=== PATIENT | male | born 1940 | race Caucasian/White ===

== ENCOUNTER 2018-04-20 08:30 | Emergency (ER) | payer OTHER ==
[~2018-04-20] VITALS: Ht 180.3 cm; Wt 81.8 kg
[~2018-04-20 08:30] MED LIST: AMIODARONE200 MG PO; ASPIRIN EC325 MG PO; CARVEDILOL12.5 MG PO; DOCUSATE SOD100 MG PO; FUROSEMIDE20 MG PO; SIMVASTATIN10 MG PO; WARFARIN5 MG PO
[2018-04-20 09:10] LABS: HEMATOCRIT 39.1 % (39.0-50.0); HEMOGLOBIN 12.7 g/dl (14.0-18.0); IMMATURE GRANULOCYTES 0.2 % (0.0-5.0); MEAN CELL VOLUME 97.5 fL CALC (80.0-100.0); MEAN CORPUSCULAR HGB 31.7 pG CALC (26.0-32.0); MEAN CORPUSCULAR HGB CONC 32.5 g/L CALC (32.0-36.0); NEUT# 3.27 thou/uL (1.82-7.42); RED BLOOD COUNT 4.01 mill/uL (4.70-6.10); RED CELL DISTRI WIDTH 14.6 % (11.5-15.5)
[2018-04-20 09:23] LABS: CREATININE 1.4 mg/dL (0.7-1.3); POTASSIUM 4.2 mmol/l (3.5-5.1)
[2018-04-20 12:02] VITALS: BP 131/70
== END 2018-04-20 12:02 | disposition home or self-care (01) | DRG 561 ==
LOC: ED 08:30
PROVIDERS: Family Medicine
PROC: 0SW9XJZ Revision of Synthetic Substitute in Right Hip Joint, External Approach (ICD-10-PCS; principal; 2018-04-20)
DX: T84.020A Dislocation of internal right hip prosthesis, initial encounter (principal); Y83.1 Surgical operation with implant of artificial internal device as the cause of abnormal reaction of the patient, or of later complication, without mention of misadventure at the time of the procedure; Z96.641 Presence of right artificial hip joint

== ENCOUNTER 2020-03-19 15:51 | Emergency (ER) | payer OTHER ==
[~2020-03-19] VITALS: Ht 180.3 cm; Wt 75.0 kg
[2020-03-19 16:33] LABS: HEMATOCRIT 43.6 % (39.0-50.0); HEMOGLOBIN 13.6 g/dl (14.0-18.0); IMMATURE GRANULOCYTES 0.5 % (0.0-5.0); MEAN CELL VOLUME 96.7 fL CALC (80.0-100.0); MEAN CORPUSCULAR HGB 30.2 pG CALC (26.0-32.0); MEAN CORPUSCULAR HGB CONC 31.2 g/dL CAL (32.0-36.0); NEUT# 5.01 thou/uL (1.82-7.42); RED BLOOD COUNT 4.51 mill/uL (4.70-6.10); RED CELL DISTRI WIDTH 15.8 % (11.5-15.5)
[2020-03-19 16:52] LABS: CREATININE 1.4 mg/dL (0.7-1.3); POTASSIUM 4.2 mmol/l (3.5-5.1)
[2020-03-19 18:52] VITALS: BP 149/71
== END 2020-03-19 19:06 | disposition home or self-care (01) | DRG 561 ==
LOC: ED 15:51
PROVIDERS: Family Medicine
PROC: 0SW9XJZ Revision of Synthetic Substitute in Right Hip Joint, External Approach (ICD-10-PCS; principal; 2020-03-19)
DX: T84.020A Dislocation of internal right hip prosthesis, initial encounter (principal); W18.2XXA Fall in (into) shower or empty bathtub, initial encounter; Z96.641 Presence of right artificial hip joint

== ENCOUNTER 2020-06-21 10:41 | Emergency (ER) | payer OTHER ==
[~2020-06-21] VITALS: Ht 180.3 cm; Wt 75.0 kg
[2020-06-21] MEDS ORDERED: LIPITOR80 M1 PO (11:06)
[2020-06-21] MEDS ORDERED: CHILD ASA LS81 MG PO (11:07)
[2020-06-21] MEDS ORDERED: SPIRIVA RE1.25 MCG/A IN (11:07)
[2020-06-21] MEDS ORDERED: TYLENOL500 MG PO (11:08)
[2020-06-21] MEDS ORDERED: STOOL SOFTNR PO (11:09)
[2020-06-21 13:30] VITALS: BP 138/80
== END 2020-06-21 13:30 | disposition home or self-care (01) | DRG 561 ==
LOC: ED 10:41
PROC: 0SW9XJZ Revision of Synthetic Substitute in Right Hip Joint, External Approach (ICD-10-PCS; principal; 2020-06-21)
DX: T84.020A Dislocation of internal right hip prosthesis, initial encounter (principal); I10 Essential (primary) hypertension; I25.2 Old myocardial infarction; F17.200 Nicotine dependence, unspecified, uncomplicated; Y83.1 Surgical operation with implant of artificial internal device as the cause of abnormal reaction of the patient, or of later complication, without mention of misadventure at the time of the procedure; Y92.007 Garden or yard of unspecified non-institutional (private) residence as the place of occurrence of the external cause; Z95.1 Presence of aortocoronary bypass graft; Z96.641 Presence of right artificial hip joint

== ENCOUNTER 2021-02-17 08:29 | Emergency (ER) | payer OTHER ==
[~2021-02-17] VITALS: Ht 180.3 cm; Wt 68.0 kg
[~2021-02-17 08:29] MED LIST changes: +CHILD ASA LS81 MG PO; +LIPITOR80 M1 PO; +SPIRIVA RE1.25 MCG/A IN; +STOOL SOFTNR PO; +TYLENOL500 MG PO
[2021-02-17 14:20] VITALS: BP 156/72
== END 2021-02-17 14:26 | disposition home or self-care (01) | DRG 561 ==
LOC: ED 08:29
PROC: 0SW9XJZ Revision of Synthetic Substitute in Right Hip Joint, External Approach (ICD-10-PCS; principal; 2021-02-17)
DX: T84.020A Dislocation of internal right hip prosthesis, initial encounter (principal); I10 Essential (primary) hypertension; E78.00 Pure hypercholesterolemia, unspecified; I25.2 Old myocardial infarction; F17.210 Nicotine dependence, cigarettes, uncomplicated; Y83.1 Surgical operation with implant of artificial internal device as the cause of abnormal reaction of the patient, or of later complication, without mention of misadventure at the time of the procedure; Y92.007 Garden or yard of unspecified non-institutional (private) residence as the place of occurrence of the external cause; Z95.1 Presence of aortocoronary bypass graft; Z20.822 Contact with and (suspected) exposure to COVID-19
CPT/HCPCS: J2060

== ENCOUNTER 2021-07-04 12:53 | Observation (INO) | payer OTHER ==
[~2021-07-04] VITALS: Ht 182.9 cm; Wt 68.6 kg
[2021-07-04 13:33] LABS: IMMATURE GRANULOCYTES 0.3 % (0.0-5.0); MEAN CELL VOLUME 97.3 fL CALC (80.0-100.0); MEAN CORPUSCULAR HGB 30.5 pG CALC (26.0-32.0); MEAN CORPUSCULAR HGB CONC 31.3 g/dL CAL (32.0-36.0); NEUT# 7.34 thou/uL (1.82-7.42); RED BLOOD COUNT 3.71 mill/uL (4.70-6.10); RED CELL DISTRI WIDTH 14.4 % (11.5-15.5)
[2021-07-04 13:45] LABS: ALBUMIN 3.5 g/dL (3.2-5.0); ALKALINE PHOSPHATASE 63 u/l (38-126); AMYLASE 69 u/l (30-110); ANION GAP 9 (6-22 (CALC)); BUN 25 mg/dL (8-23); BUN/CREATININE RATIO 20 (12-20 (CALC)); CARBON DIOXIDE 28 mmol/l (22-30); CHLORIDE 103 mmol/l (95-108); CREATININE 1.2 mg/dL (0.7-1.3); ETHYL ALCOHOL 0 mg/dl (0-30); GFR 58 ML/MIN (>=60 (CALC)); GFR FOR AFR.AMER. > 60 ML/MIN (>=60 (CALC)); LIPASE 77 u/l (23-300); MAGNESIUM 2.1 mg/dL (1.6-2.3); SODIUM 137 mmol/l (137-146); TOTAL PROTEIN 8.1 g/dL (6.3-8.2)
[2021-07-04 13:50] LABS: BILIRUBIN, TOTAL 0.7 mg/dL (0.0-1.4); SGOT/AST 70 u/l (19-48)
[2021-07-04 13:51] LABS: D-DIMER 2.41 mg/L (0.19-0.60)
[2021-07-04 13:54] LABS: HEMATOCRIT 36.1 % (39.0-50.0); HEMOGLOBIN 11.3 g/dl (14.0-18.0)
[2021-07-04 13:59] LABS: ACT PARTIAL THROMBO TIME 30.2 SECONDS (20.0-32.5); INTERNATIONAL NORMALIZED RATIO 1.1 RATIO (0.7-1.3)
[2021-07-04 14:33] LABS: URINE BILIRUBIN - DIPSTICK NEGATIVE (NEGATIVE); URINE BLOOD DIPSTICK MODERATE (NEGATIVE); URINE COLOR YELLOW; URINE GLUCOSE - DIPSTICK NEGATIVE (NEGATIVE); URINE KETONE NEGATIVE (NEGATIVE); URINE LEUK ESTERASE NEGATIVE (NEGATIVE); URINE PROTEIN - DIPSTICK 100 mg/dL (NEG-TRACE); URINE SPECIFIC GRAVITY >=1.030
[2021-07-04 14:44] LABS: URINE NITRITE - DIPSTICK NEGATIVE (Negative)
[2021-07-04 14:45] LABS: URINE WBC 0-2 WBC/hpf (0-5)
[2021-07-04 16:33] VITALS: BP 126/68
[2021-07-04 19:15] VITALS: BP 100/56
[2021-07-05 00:30] VITALS: BP 108/56
[2021-07-05 04:00] VITALS: BP 128/72
[2021-07-05 04:57] LABS: HEMATOCRIT 30.9 % (39.0-50.0); HEMOGLOBIN 10.1 g/dl (14.0-18.0); MEAN CELL VOLUME 94.5 fL CALC (80.0-100.0); MEAN CORPUSCULAR HGB 30.9 pG CALC (26.0-32.0); MEAN CORPUSCULAR HGB CONC 32.7 g/dL CAL (32.0-36.0); RED BLOOD COUNT 3.27 mill/uL (4.70-6.10); RED CELL DISTRI WIDTH 14.2 % (11.5-15.5)
[2021-07-05 05:13] LABS: ANION GAP 16 (6-22 (CALC)); BUN 22 mg/dL (8-23); BUN/CREATININE RATIO 20 (12-20 (CALC)); CARBON DIOXIDE 29 mmol/l (22-30); CHLORIDE 96 mmol/l (95-108); CREATININE 1.1 mg/dL (0.7-1.3); GFR > 60 ML/MIN (>=60 (CALC)); GFR FOR AFR.AMER. > 60 ML/MIN (>=60 (CALC)); POTASSIUM 4.5 mmol/l (3.5-5.1); SODIUM 137 mmol/l (137-146)
[2021-07-05 07:02] VITALS: BP 141/77
[2021-07-05 10:20] VITALS: BP 118/76
[2021-07-05 11:17] VITALS: BP 118/76
[2021-07-05] MEDS ORDERED: ZITHROMAX250 MG PO (11:18)
[2021-07-05] MEDS ORDERED: OMNICEF300 MG PO (11:18)
== END 2021-07-05 12:15 | disposition home or self-care (01) | DRG 195 ==
LOC: ED 12:53 → ED-I 15:03 → ED 15:21 → MS2 15:22
PROVIDERS: ADMIT Hospitalist; ATTEND Hospitalist
DX: J18.9 Pneumonia, unspecified organism (principal); E86.0 Dehydration; I10 Essential (primary) hypertension; I25.10 Atherosclerotic heart disease of native coronary artery without angina pectoris; E78.5 Hyperlipidemia, unspecified; I25.2 Old myocardial infarction; F17.210 Nicotine dependence, cigarettes, uncomplicated; Z95.1 Presence of aortocoronary bypass graft; Z20.822 Contact with and (suspected) exposure to COVID-19
CPT/HCPCS: J1650; Q9967

== ENCOUNTER 2021-07-06 06:43 | Emergency (ER) | payer OTHER ==
[~2021-07-06] VITALS: Ht 182.9 cm; Wt 68.0 kg
[~2021-07-06 06:43] MED LIST changes: +OMNICEF300 MG PO; +ZITHROMAX250 MG PO
[2021-07-06 07:41] LABS: HEMATOCRIT 31.7 % (39.0-50.0); HEMOGLOBIN 10.3 g/dl (14.0-18.0); IMMATURE GRANULOCYTES 0.3 % (0.0-5.0); MEAN CELL VOLUME 94.3 fL CALC (80.0-100.0); MEAN CORPUSCULAR HGB 30.7 pG CALC (26.0-32.0); MEAN CORPUSCULAR HGB CONC 32.5 g/dL CAL (32.0-36.0); NEUT# 4.77 thou/uL (1.82-7.42); RED BLOOD COUNT 3.36 mill/uL (4.70-6.10); RED CELL DISTRI WIDTH 14.3 % (11.5-15.5)
[2021-07-06 08:06] LABS: ALBUMIN 3.2 g/dL (3.2-5.0); ALKALINE PHOSPHATASE 59 u/l (38-126); ANION GAP 9 (6-22 (CALC)); BILIRUBIN, TOTAL 0.5 mg/dL (0.0-1.4); BUN 23 mg/dL (8-23); BUN/CREATININE RATIO 18 (12-20 (CALC)); CARBON DIOXIDE 28 mmol/l (22-30); CHLORIDE 101 mmol/l (95-108); CREATININE 1.3 mg/dL (0.7-1.3); GFR 53 ML/MIN (>=60 (CALC)); GFR FOR AFR.AMER. > 60 ML/MIN (>=60 (CALC)); POTASSIUM 4.1 mmol/l (3.5-5.1); SGOT/AST 73 u/l (19-48); SODIUM 134 mmol/l (137-146); TOTAL PROTEIN 7.4 g/dL (6.3-8.2)
[2021-07-06 08:46] VITALS: BP 145/70
== END 2021-07-06 09:20 | disposition home or self-care (01) | DRG 312 ==
LOC: ED 06:43
PROVIDERS: Family Medicine
DX: R55 Syncope and collapse (principal); J18.9 Pneumonia, unspecified organism; I10 Essential (primary) hypertension; I25.2 Old myocardial infarction; I25.10 Atherosclerotic heart disease of native coronary artery without angina pectoris; F17.210 Nicotine dependence, cigarettes, uncomplicated; Z95.1 Presence of aortocoronary bypass graft

== ENCOUNTER 2022-04-22 11:49 | Emergency (ER) | payer OTHER ==
[~2022-04-22] VITALS: Ht 182.9 cm; Wt 66.0 kg
[2022-04-22] VITALS (33 sets, daily range): BP systolic 88–155; BP diastolic 50–121
[2022-04-22 12:42] LABS: HEMATOCRIT 30.9 % (39.0-50.0); IMMATURE GRANULOCYTES 0.2 % (0.0-5.0); MEAN CELL VOLUME 89.6 fL CALC (80.0-100.0); MEAN CORPUSCULAR HGB CONC 32.4 g/dL CAL (32.0-36.0); NEUT# 4.11 thou/uL (1.82-7.42); RED BLOOD COUNT 3.45 mill/uL (4.70-6.10); RED CELL DISTRI WIDTH 19.2 % (11.5-15.5)
[2022-04-22 13:09] LABS: ALBUMIN 3.8 g/dL (3.2-5.0); ALKALINE PHOSPHATASE 68 u/l (38-126); ANION GAP 14 (6-22 (CALC)); BILIRUBIN, TOTAL 0.6 mg/dL (0.0-1.4); BUN 20 mg/dL (8-23); BUN/CREATININE RATIO 19 (12-20 (CALC)); CARBON DIOXIDE 23 mmol/l (22-30); CHLORIDE 101 mmol/l (95-108); GFR FOR AFR.AMER. > 60 ML/MIN (>=60 (CALC)); GFR OTHER RACES > 60 ML/MIN (>=60 (CALC)); POTASSIUM 4.1 mmol/l (3.5-5.1); SGOT/AST 28 u/l (19-48); SODIUM 133 mmol/l (137-146); TOTAL PROTEIN 8.6 g/dL (6.3-8.2)
[2022-04-22] MEDS ORDERED: RIFAMPIN300 MG PO (13:11)
[2022-04-22] MEDS ORDERED: MYAMBUTOL400 MG PO (13:12)
[2022-04-22] MEDS ORDERED: NAPROXEN500 MG PO (16:53)
== END 2022-04-22 17:59 | disposition home or self-care (01) | DRG 561 ==
LOC: ED 11:49
PROVIDERS: Emergency Medicine
PROC: 0SW9XJZ Revision of Synthetic Substitute in Right Hip Joint, External Approach (ICD-10-PCS; principal; 2022-04-22)
DX: T84.020A Dislocation of internal right hip prosthesis, initial encounter (principal); Y83.1 Surgical operation with implant of artificial internal device as the cause of abnormal reaction of the patient, or of later complication, without mention of misadventure at the time of the procedure; I10 Essential (primary) hypertension; I25.10 Atherosclerotic heart disease of native coronary artery without angina pectoris; I25.2 Old myocardial infarction; F17.210 Nicotine dependence, cigarettes, uncomplicated

== ENCOUNTER 2022-08-10 08:26 | Emergency (ER) | payer OTHER ==
[~2022-08-10] VITALS: Ht 182.9 cm; Wt 67.0 kg
[~2022-08-10 08:26] MED LIST changes: +MYAMBUTOL400 MG PO; +NAPROXEN500 MG PO; +RIFAMPIN300 MG PO
[2022-08-10 09:01] VITALS: BP 165/90
[2022-08-10 09:16] VITALS: BP 162/85
[2022-08-10 09:30] VITALS: BP 166/83
[2022-08-10 09:58] LABS: BASO% 1.4 % (0-3); EOS% 3.9 % (0-8); HEMATOCRIT 32.7 % (39.0-50.0); HEMOGLOBIN 10.6 g/dl (14.0-18.0); IMMATURE GRANULOCYTES 0.2 % (0.0-5.0); LYMPH% 15.8 % (15-41); MEAN CORPUSCULAR HGB 31.3 pG CALC (26.0-32.0); MEAN CORPUSCULAR HGB CONC 32.4 g/dL CAL (32.0-36.0); MONO% 7.9 % (2-13); NEUT# 3.05 thou/uL (1.82-7.42); NEUT% 70.8 % (42-76); RED BLOOD COUNT 3.39 mill/uL (4.70-6.10); RED CELL DISTRI WIDTH 16.4 % (11.5-15.5)
[2022-08-10 10:03] LABS: ALBUMIN 3.9 g/dL (3.2-5.0); ALKALINE PHOSPHATASE 79 u/l (38-126); BUN 19 mg/dL (8-23); BUN/CREATININE RATIO 17 (12-20 (CALC)); CHLORIDE 104 mmol/l (95-108); CREATININE 1.1 mg/dL (0.7-1.3); GFR FOR AFR.AMER. > 60 ML/MIN (>=60 (CALC)); GFR OTHER RACES > 60 ML/MIN (>=60 (CALC)); POTASSIUM 4.2 mmol/l (3.5-5.1); SGOT/AST 26 u/l (19-48); SODIUM 135 mmol/l (137-146)
[2022-08-10 10:05] LABS: MEAN CELL VOLUME 96.5 fL CALC (80.0-100.0)
[2022-08-10 10:09] LABS: ANION GAP 6 (6-22 (CALC)); BILIRUBIN, TOTAL 0.3 mg/dL (0.0-1.4); CARBON DIOXIDE 29 mmol/l (22-30)
[2022-08-10] MEDS ORDERED: TRAMADOL HYDROC50 M1 PO (11:13)
[2022-08-10 11:26] VITALS: BP 166/83
== END 2022-08-10 11:34 | disposition home or self-care (01) | DRG 552 ==
LOC: ED 08:26
PROVIDERS: Family Medicine
DX: M54.6 Pain in thoracic spine (principal); M54.50 Low back pain, unspecified

== ENCOUNTER 2024-02-24 11:08 | Emergency (ER) | payer OTHER ==
[2024-02-24] VITALS (25 sets, daily range): BP systolic 82–172; BP diastolic 47–107
[~2024-02-24] VITALS: Ht 182.9 cm; Wt 61.2 kg
[~2024-02-24 11:08] MED LIST changes: +TRAMADOL HYDROC50 M1 PO
[2024-02-24] MEDS ORDERED: SODIUM CHLORIDE 0.9% 1,000 ML IV ONE (11:55)
[2024-02-24] MEDS ORDERED: LIDOCAINE HCL 2% 2ML SDV IV ONE (18:15)
[2024-02-24] MEDS ORDERED: PROPOFOL 200 MG/20 ML VIAL IV ONE (18:15)
== END 2024-02-24 14:25 | disposition home or self-care (01) | DRG 561 ==
LOC: ED 11:08
PROC: 0SWRXJZ Revision of Synthetic Substitute in Right Hip Joint, Femoral Surface, External Approach (ICD-10-PCS; principal; 2024-02-24)
DX: T84.020A Dislocation of internal right hip prosthesis, initial encounter (principal); I10 Essential (primary) hypertension; I25.10 Atherosclerotic heart disease of native coronary artery without angina pectoris; I25.2 Old myocardial infarction; F17.290 Nicotine dependence, other tobacco product, uncomplicated; Y83.1 Surgical operation with implant of artificial internal device as the cause of abnormal reaction of the patient, or of later complication, without mention of misadventure at the time of the procedure; Y92.009 Unspecified place in unspecified non-institutional (private) residence as the place of occurrence of the external cause; Z96.641 Presence of right artificial hip joint; Z95.1 Presence of aortocoronary bypass graft

== ENCOUNTER 2024-10-09 18:39 | Emergency (ER) | payer OTHER ==
[~2024-10-09] VITALS: Ht 182.9 cm; Wt 63.5 kg
[2024-10-09] VITALS (10 sets, daily range): BP systolic 105–144; BP diastolic 58–93
[~2024-10-09 18:39] MED LIST changes: +CIPROFLOXACN500 MG PO; +ELIQUIS2.5 MG PO; +TAMSULOSIN0.4 MG PO
[2024-10-09] MEDS ORDERED: IPRATROPIUM-Albuterol 0.5MG-2.5MG/3 ML NEB ONE (18:55)
[2024-10-09] MEDS ORDERED: methylPREDNISolone SODIUM SUCC 125 MG/2 ML SDV IV ONE (18:55)
[2024-10-09 19:26] LABS: BASO% 0.2 % (0-3); EOS% 3.5 % (0-8); HEMATOCRIT 38.5 % (39.0-50.0); HEMOGLOBIN 12.2 g/dl (14.0-18.0); IMMATURE GRANULOCYTES 0.3 % (0.0-5.0); LYMPH% 3.9 % (15-41); MEAN CELL VOLUME 96.5 fL CALC (80.0-100.0); MEAN CORPUSCULAR HGB 30.6 pG CALC (26.0-32.0); MEAN CORPUSCULAR HGB CONC 31.7 g/dL CAL (32.0-36.0); MONO% 4.7 % (2-13); NEUT# 8.5 thou/uL (1.82-7.42); NEUT% 87.4 % (42-76); RED BLOOD COUNT 3.99 mill/uL (4.70-6.10); RED CELL DISTRI WIDTH 14.9 % (11.5-15.5)
[2024-10-09 19:40] LABS: ALBUMIN 3.9 g/dL (3.2-5.0); BILIRUBIN, TOTAL 0.7 mg/dL (0.2-1.3); CREATININE 1.5 mg/dL (0.7-1.3); TOTAL PROTEIN 8.4 g/dL (6.3-8.2)
[2024-10-09] MEDS ORDERED: SODIUM CHLORIDE 0.9% 1,000 ML IV ONE (19:55)
[2024-10-09] MEDS ORDERED: ASPIRIN 81 MG/TAB PO ONE (19:55)
[2024-10-09] MEDS ORDERED: AZITHROMYCIN 500 MG in SODIUM CHLORIDE 0.9% 250 ML IV ONE (20:45)
[2024-10-09] MEDS ORDERED: MACRODANTIN100 MG PO (21:36)
[2024-10-09] MEDS ORDERED: OXYBUTYNIN CHLOR5 M2 (21:37)
== END 2024-10-09 22:20 | DRG 194 ==
LOC: ED 18:39
PROVIDERS: Family Medicine
DX: J18.9 Pneumonia, unspecified organism (principal); J44.0 Chronic obstructive pulmonary disease with (acute) lower respiratory infection; R09.02 Hypoxemia; I10 Essential (primary) hypertension; I25.10 Atherosclerotic heart disease of native coronary artery without angina pectoris; I48.91 Unspecified atrial fibrillation; I25.2 Old myocardial infarction; F17.200 Nicotine dependence, unspecified, uncomplicated; Z95.1 Presence of aortocoronary bypass graft; Z20.822 Contact with and (suspected) exposure to COVID-19
CPT/HCPCS: J0456; J0696; Q9967